=== PATIENT | male | born 1970 | race Caucasian/White ===

== ENCOUNTER 2017-09-15 17:02 | Emergency (ER) | payer OTHER ==
[2017-09-15 17:09] VITALS: BP 106/74
[2017-09-15] MEDS ORDERED: Docusate LIQ* 100 MG/10 ML UDC PO PRN (18:01)
[2017-09-15] MEDS ORDERED: Docusate LIQ* 100 MG/10 ML UDC ONE (18:07)
--- NOTE | 2017-09-15 18:08 | UC ---
Ear Complaint HPI - HPI Summary HPI Summary: Patient presents to the ED with chief complaint of right ear foreign body 1 day. He states the blood to his hearing aids came off inside the ear. He states this is the third time this has happened. Endorses decreased hearing and a mild amount of pain. He also endorses cerumen impaction bilaterally. He is otherwise healthy. Denies any fevers, sweats, chills. Denies any other pain at this time. - History of Current Complaint Chief Complaint: UCEar Stated Complaint: EAR COMPLAINT Time Seen by Provider: 09/15/17 17:15 Hx Obtained From: Patient Onset/Duration: Sudden Onset Severity Initially: Moderate Severity Currently: Moderate Pain Intensity: 2 Pain Scale Used: 0-10 Numeric Associated Signs/Symptoms: Positive: Hearing Loss, Foreign Body Sensation - Allergies/Home Medications Allergies/Adverse Reactions: Allergies Allergy/AdvReac Type Severity Reaction Status Date / Time No Known Allergies Allergy Verified 09/15/17 17:09 PMH/Surg Hx/FS Hx/Imm Hx Previously Healthy: Yes - Surgical History Surgical History: None - Social History Occupation: Employed Full-time Lives: With Family - any work with Alcohol Use: Occasionally Alcohol Amount: a beer Substance Use Type: None Smoking Status (MU): Never Smoked Tobacco Review of Systems Constitutional: Negative Skin: Negative - worsening ENT: Ear Ache Respiratory: Negative Cardiovascular: Negative Motor: Negative Neurovascular: Negative Neurological: Negative Is Patient Immunocompromised?: No All Other Systems Reviewed And Are Negative: Yes Physical Exam Triage Information Reviewed: Yes Appearance: Well-Appearing, Well-Nourished Vital Signs: Initial Vital Signs Temp 98.2 F 09/15/17 17:05 Pulse 69 09/15/17 17:05 Resp 18 09/15/17 17:05 BP 106/74 09/15/17 17:05 Pulse Ox 100 09/15/17 17:05 Vital Signs Reviewed: Yes Eye Exam: Normal Eyes: Positive: Conjunctiva Clear ENT: Positive: Other - Foreign body to the right ear with cerumen impaction bilaterally Neck exam: Normal Neck: Positive: Supple, No Lymphadenopathy Respiratory Exam: Normal Respiratory: Positive: Chest non-tender Musculoskeletal Exam: Normal Musculoskeletal: Positive: Strength Intact Neurological Exam: Normal Psychological Exam: Normal Psychological: Positive: Normal Response To Family Skin Exam: Normal Ear Complaint Course/Dx - Course Course Of Treatment: During the course of treatment, the patient's evaluated for right forearm body in the ear. Endorses pain and decreased hearing. Foreign body removed with alligator tweezers. Irrigated bilateral ears first with hydrogen peroxide with no effect. Second with Colace to soften with effect. Ears irrigated successfully bilaterally. He feels improved with increased sensitivities to hearing. He is discharged at this time and voices no complaints. - Differential Dx/Diagnosis Differential Diagnosis/HQI/PQRI: Cerumen Impaction Provider Diagnoses: Cerumen impaction; ear foreign body Discharge - Discharge Plan Condition: Stable Disposition: HOME Patient Education Materials: Cerumen Impaction (ED), Ear Foreign Body (ED) Referrals: Nikolas Will MD [Primary Care Provider] -
== END 2017-09-15 19:07 | disposition home or self-care (01) ==
LOC: UCEAST 17:02
DX: H61.23 Impacted cerumen, bilateral (principal); T16.1XXA Foreign body in right ear, initial encounter; X58.XXXA Exposure to other specified factors, initial encounter; Y93.9 Activity, unspecified; Y92.9 Unspecified place or not applicable
CPT/HCPCS: 99212; A9270-GY; G0463

== ENCOUNTER 2019-05-15 18:30 | Emergency (ER) | payer OTHER ==
[2019-05-15 18:43] VITALS: BP 124/70
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
--- NOTE | 2019-05-16 13:37 | UC ---
- Progress Note Progress Note: Final radiologist reading of right shoulder x-ray from May 15, 2019 comes back as no fracture. Provider interpretation same date is the same therefore there is no discrepancy. Course/Dx - Diagnoses Provider Diagnoses: Right shoulder pain Discharge ED - Sign-Out/Discharge Documenting (check all that apply): Patient Departure All imaging exams completed and their final reports reviewed: Yes - Discharge Plan Condition: Stable Disposition: HOME Patient Education Materials: Shoulder Pain (ED) Referrals: [facility] [Provider Group] Nikolas Will MD [Primary Care Provider] - Additional Instructions: FOLLOW UP WITH SPORTS MEDICINE. GET REEVALUATED SOONER IF NOT IMPROVED OR WORSE OR ANY QUESTIONS OR CONCERNS. - Billing Disposition and Condition Condition: STABLE Disposition: Home
== END 2019-05-15 19:30 | disposition home or self-care (01) ==
LOC: UCEAST 18:30
DX: M25.511 Pain in right shoulder (principal)
CPT/HCPCS: 99211; G0463